=== PATIENT | female | born 1935 | race Caucasian/White ===

== ENCOUNTER 2017-03-07 18:46 | Emergency (ER) | payer OTHER ==
[~2017-03-07] VITALS: Ht 167.6 cm; Wt 92.6 kg
[2017-03-07 20:01] LABS: HEMATOCRIT 48.5 % (36.0-46.0); HEMOGLOBIN 16.6 G/DL (11.9-15.5); MCH 33.6 PG (29.0-34.0); MCHC 34.2 G/DL (30.0-36.0); MCV 98.2 FL (83-99); PLATELET COUNT 216 K/uL (156-360); RBC DIS.WIDTH-CV 12.2 % (11.8-14.6); RBC DIS.WIDTH-SD 44.2 % (39-53); RED BLOOD COUNT 4.94 M/uL (3.80-5.20); WHITE BLOOD COUNT 9.3 K/uL (4.1-10.2)
[2017-03-07 20:13] LABS: ALBUMIN 4.6 g/dL (3.2-4.8); CHLORIDE 106 mEq/L (99-109); POTASSIUM 4.6 mEq/L (3.7-5.4); SODIUM 141 mEq/L (136-147)
[2017-03-07 20:15] LABS: GLUCOSE 149 mg/dL (70-99); TOTAL PROTEIN 8.3 g/dL (6.4-8.3)
[2017-03-07 20:17] LABS: TOTAL BILIRUBIN 0.4 mg/dL (0.0-1.0)
[2017-03-07 20:19] LABS: ALKALINE PHOSPHATASE 58 IU/L (3-129); GFR ESTIMATE (CALCULATED) 56 mL/min/
[2017-03-07 20:20] LABS: UREA NITROGEN (BUN) 19 mg/dL (9-23)
[2017-03-07 20:21] LABS: AST (GOT) 48 IU/L (2-34)
[2017-03-07 20:22] LABS: ALT (GPT) 29 IU/L (3-49)
[2017-03-07 21:31] LABS: APPEARANCE CLEAR ((CLEAR)); BILIRUBIN NEGATIVE; BLOOD SMALL; COLOR STRAW ((YELLOW)); GLUCOSE (STRIP) >=500; KETONES NEGATIVE; LEUKOCYTES NEGATIVE; NITRITE NEGATIVE; PROTEIN (STRIP) 100; SPECIFIC GRAVITY 1.012 (1.000-1.030); UROBILINOGEN 0.2 MG/DL (0.2-1.0)
[2017-03-07 21:33] LABS: BACTERIA NONE SEEN /HPF; EPITHELIAL CELLS RARE /HPF; MUCUS NONE SEEN /LPF; RED BLOOD CELLS 0-5 /HPF (0-5); UCUL ADDED? NO; WHITE BLOOD CELLS 0-5 /HPF (0-5)
[2017-03-07 23:46] VITALS: BP 143/72
== END 2017-03-08 00:07 | disposition home or self-care (01) ==
LOC: EDBD 18:46 → EME 18:46
PROVIDERS: Emergency Medicine
DX: E11.649 Type 2 diabetes mellitus with hypoglycemia without coma (principal); I10 Essential (primary) hypertension; F32.9 Major depressive disorder, single episode, unspecified; Z87.891 Personal history of nicotine dependence; Z79.4 Long term (current) use of insulin; Z88.8 Allergy status to other drugs, medicaments and biological substances
CPT/HCPCS: 80053; 81003; 82948; 85027; 99281; 99285